=== PATIENT | female | born 1995 ===

== ENCOUNTER → 2019-12-24 | Outpatient (CLI) | payer OTHER ==
[2019-12-30 21:09] LABS: AFP MOM 1.06 (.); AFP VALUE 39.6 ng/mL (.); DIA MOM 1.94 (.); DIA VALUE 355.81 pg/mL (.); DSR (BY AGE) 1 IN 898 (.); DSR (SECOND TRIMESTER) 1 IN 1195 (.); GEST. AGE ON COLLECTION DATE 16.1 WEEKS (.); HCG MOM 1.36 (.); HCG VALUE 61471 mIU/mL (.); INSULIN DEP DIABETES No (.); MATERNAL AGE AT EDD 27.4 yr (.); MULTIPLE GESTATION No (.); OSBR RISK 1 IN 10000 (.); RACE Other (.); RESULTS Report (.); T18 RISK Not increased (.); TEST RESULTS: *Screen Negative* (.); UE3 MOM 1.49 (.); UE3 VALUE 1.53 ng/mL (.); WEIGHT 129 lbs (.)
== END | disposition home or self-care (01) ==
LOC: LAB 13:15 → LAB SHORT 13:15
PROVIDERS: Advanced Practice Midwife
DX: Z34.02 Encounter for supervision of normal first pregnancy, second trimester (principal)
CPT/HCPCS: 82105; 82677; 84702; 86336

== ENCOUNTER 2020-06-08 15:44 | Inpatient (IN) | payer OTHER ==
[~2020-06-08] VITALS: Ht 157.5 cm; Wt 71.7 kg
[2020-06-08] MEDS ORDERED: PRENATAL TABLE1 EAC2 PO (16:48)
[2020-06-08 16:52] LABS: BASOPHILS ABSOLUTE AUTO 0.02 K/mm3 (0.00-0.23); BASOPHILS PERCENT AUTO 0 % (0-2); EOSINOPHILS ABSOLUTE AUTO 0.05 K/mm3 (0.00-0.68); EOSINOPHILS PERCENT AUTO 1 % (0-6); Hematocrit 35.1 % (33.0-51.0); IMMATURE GRAN ABSOLUTE AUTO 0.03 K/mm3 (0.00-0.10); IMMATURE GRAN PERCENT AUTO 0 % (0-1); LYMPHOCYTES ABSOLUTE AUTO 1.62 K/mm3 (0.84-5.20); LYMPHOCYTES PERCENT AUTO 22 % (21-46); MONOCYTES ABSOLUTE AUTO 0.71 K/mm3 (0.16-1.47); MONOCYTES PERCENT AUTO 10 % (4-13); Mean Corpuscular HGB 29.5 pg (26.0-34.0); Mean Corpuscular HGB Conc 34.2 g/dL (31.5-36.5); Mean Corpuscular Volume 86 fL (80-100); Mean Platelet Volume 12.9 fL (9.1-12.4); NEUTROPHILS ABSOLUTE AUTO 5.01 K/mm3 (1.96-9.15); NEUTROPHILS PERCENT AUTO 67 % (41-73); Platelet Count 93 K/mm3 (150-400); RDW Coefficient Variation 12.9 % (11.7-14.2); RDW Standard Deviation 40.9 fL (35.1-46.3); Red Blood Cell Count 4.07 M/mm3 (3.80-5.20); White Blood Cell Count 7.44 K/mm3 (4.00-11.30)
[2020-06-08 22:30] LABS: Hematocrit 36.5 % (33.0-51.0); Hemoglobin 12.4 g/dL (11.5-16.0); Mean Corpuscular HGB 29.3 pg (26.0-34.0); Mean Corpuscular Volume 86 fL (80-100); Mean Platelet Volume 12.7 fL (9.1-12.4); Platelet Count 80 K/mm3 (150-400); RDW Standard Deviation 41.1 fL (35.1-46.3); Red Blood Cell Count 4.23 M/mm3 (3.80-5.20); White Blood Cell Count 7.64 K/mm3 (4.00-11.30)
[2020-06-08 23:02] LABS: Platelet Function Col/Epi 150 sec (75-165)
[2020-06-10 05:46] LABS: BASOPHILS ABSOLUTE AUTO 0.03 K/mm3 (0.00-0.23); BASOPHILS PERCENT AUTO 0 % (0-2); EOSINOPHILS ABSOLUTE AUTO 0.05 K/mm3 (0.00-0.68); EOSINOPHILS PERCENT AUTO 0 % (0-6); Hematocrit 36.9 % (33.0-51.0); Hemoglobin 12.3 g/dL (11.5-16.0); IMMATURE GRAN ABSOLUTE AUTO 0.03 K/mm3 (0.00-0.10); IMMATURE GRAN PERCENT AUTO 0 % (0-1); LYMPHOCYTES ABSOLUTE AUTO 2.11 K/mm3 (0.84-5.20); LYMPHOCYTES PERCENT AUTO 18 % (21-46); MONOCYTES ABSOLUTE AUTO 1.01 K/mm3 (0.16-1.47); MONOCYTES PERCENT AUTO 9 % (4-13); Mean Corpuscular HGB 29.2 pg (26.0-34.0); Mean Corpuscular HGB Conc 33.3 g/dL (31.5-36.5); Mean Corpuscular Volume 88 fL (80-100); Mean Platelet Volume 12.5 fL (9.1-12.4); NEUTROPHILS ABSOLUTE AUTO 8.63 K/mm3 (1.96-9.15); NEUTROPHILS PERCENT AUTO 73 % (41-73); Platelet Count 102 K/mm3 (150-400); RDW Coefficient Variation 13.2 % (11.7-14.2); RDW Standard Deviation 42.2 fL (35.1-46.3); Red Blood Cell Count 4.21 M/mm3 (3.80-5.20); White Blood Cell Count 11.86 K/mm3 (4.00-11.30)
[2020-06-10] MEDS ORDERED: IBUP800 PO (11:12)
== END 2020-06-10 13:50 | disposition home or self-care (01) | DRG 805 ==
LOC: OBS 15:44 → BC 15:47 → OBS 15:53 → BC 15:56
PROVIDERS: Obstetrics & Gynecology; ADMIT Advanced Practice Midwife
PROC: 3E0P7VZ Introduction of Hormone into Female Reproductive, Via Natural or Artificial Opening (ICD-10-PCS; 2020-06-08)
PROC: 10E0XZZ Delivery of Products of Conception, External Approach (ICD-10-PCS; principal; 2020-06-09)
PROC: 0HQ9XZZ Repair Perineum Skin, External Approach (ICD-10-PCS; 2020-06-09)
DX: O98.52 Other viral diseases complicating childbirth (principal); U07.1 COVID-19; Z37.0 Single live birth; O99.12 Other diseases of the blood and blood-forming organs and certain disorders involving the immune mechanism complicating childbirth; O24.420 Gestational diabetes mellitus in childbirth, diet controlled; Z67.91 Unspecified blood type, Rh negative; D69.6 Thrombocytopenia, unspecified; O69.81X0 Labor and delivery complicated by cord around neck, without compression, not applicable or unspecified; O32.6XX0 Maternal care for compound presentation, not applicable or unspecified; O70.0 First degree perineal laceration during delivery; Z3A.40 40 weeks gestation of pregnancy
CPT/HCPCS: 0241U; 36415; 82947; 85025; 85027; 85060; 85576; 86850; 86900; 86901; 96372; A9270; J2590; J2791; J3010; J7120

== ENCOUNTER → 2021-11-08 | Outpatient (CLI) | payer OTHER ==
[~2021-11-08] MED LIST: IBUP800 PO; PRENATAL TABLE1 EAC2 PO
== END | disposition home or self-care (01) ==
LOC: LAB 16:42 → LAB SHORT 16:42
PROVIDERS: Advanced Practice Midwife
DX: Z01.419 Encounter for gynecological examination (general) (routine) without abnormal findings (principal)
CPT/HCPCS: G0123

== ENCOUNTER → 2022-12-05 | Outpatient (CLI) | payer OTHER ==
[2022-12-07 04:09] LABS: CHLAMYDIA TRACHOMATIS, NAA Negative (Negative)
== END ==
LOC: LAB 12:07 → LAB SHORT 12:07
PROVIDERS: Advanced Practice Midwife
DX: Z11.3 Encounter for screening for infections with a predominantly sexual mode of transmission (principal)
CPT/HCPCS: 87491; 87591